=== PATIENT | female | born 1955 ===

== ENCOUNTER 2021-02-22 02:44 | Inpatient (IN) | payer BC ==
[~2021-02-22] VITALS: Ht 154.9 cm; Wt 84.0 kg
[2021-02-22] MEDS ORDERED: PLEASE ENTER ALLERGIES MC SCH (03:00)
[2021-02-22] MEDS ORDERED: PLEASE ENTER HEIGHT AND WEIGHT MC SCH (03:00)
[2021-02-22] MEDS ORDERED: ONDANSETRON 2MG/ML, 2ML IVPush PRN (03:30)
[2021-02-22] MEDS ORDERED: MELATONIN 5 MG TABLET PO PRN (03:30)
[2021-02-22] MEDS ORDERED: HEPARIN 5,000 UNITS/ML, 1ML IV PRN (03:30)
[2021-02-22] MEDS ORDERED: NITROGLYCERIN 0.4 MG BOTTLE (25 TABS) SL PRN (03:30)
[2021-02-22] MEDS ORDERED: morphine SULFATE 10 MG/ML, 1ML IVPush PRN (03:30)
[2021-02-22] MEDS ORDERED: NITROGLYCERIN 0.4 MG/SPRAY SL PRN (03:30)
[2021-02-22] MEDS ORDERED: HEPARIN 25,000 UNITS/250ML PMX 250 ML IV PRN (03:30)
[2021-02-22] MEDS ORDERED: HEPARIN 5,000 UNITS/ML, 1ML IV ONE (03:30)
[2021-02-22] MEDS ORDERED: POLYETHYLENE GLYCOL 17 GM PACKET PO PRN (03:30)
[2021-02-22 03:43] VITALS: BP 113/76
[2021-02-22 03:43] LABS: BASOPHILS % (AUTO) 0 % (0-1); EOSINOPHILS % (AUTO) 1 % (1-7); LYMPHOCYTES % (AUTO) 22 % (22-44); MEAN CORPUSCULAR HEMOGLOBIN 29.2 pg (27.0-34.8); MEAN CORPUSCULAR HGB CONC 33.4 g/dL (32.4-35.8); MEAN PLATELET VOLUME 8.5 fL (7.4-10.4); MONOCYTES % (AUTO) 8 % (2-9); NEUTROPHILS % (AUTO) 69 % (42-75); PLATELET COUNT 278 x10^3/uL (130-400); RED BLOOD COUNT 4.75 x10^6/uL (3.82-5.3); RED CELL DISTRIBUTION WIDTH 14.8 % (9.6-15.2)
[2021-02-22] MEDS ORDERED: LISI-167 PO (03:52)
[2021-02-22] MEDS ORDERED: ASPI81TA45 PO (03:55)
[2021-02-22 04:33] LABS: ANION GAP 4 mmol/L (5-15); CALCIUM 8.6 mg/dL (8.5-10.1); CHLORIDE 116 mmol/L (98-107)
[2021-02-22 04:38] LABS: CHOL/HDL RATIO 3.5; CHOLESTEROL, TOTAL 194 mg/dL (140-239); CREATININE 0.82 mg/dL (0.55-1.02); HDL CHOL % 29 % (28-40); HDL CHOLESTEROL (DIRECT) 56 mg/dL (40-60); LDL CHOLESTEROL,CALCULATED 113 mg/dL (54-169); TRIGLYCERIDES 125 mg/dL (50-200); VLDL CHOLESTEROL 25 mg/dL (0-25)
[2021-02-22 07:47] VITALS: BP 118/74
[2021-02-22] MEDS: ASPIRIN 81 MG TABLET CHEW PO SCH (09:04)
[2021-02-22] MEDS: CARVEDILOL 3.125 MG TABLET PO SCH ×2 (09:04→17:15)
[2021-02-22] MEDS: LISINOPRIL 10 MG TABLET PO SCH (09:04)
[2021-02-22] MEDS: SODIUM CHLORIDE 0.9% 1,000 ML IV SCH ×4 (10:00→19:38)
[2021-02-22] MEDS ORDERED: FENTANYL PF 100 MCG/2ML ONE (11:34)
[2021-02-22] MEDS ORDERED: MIDAZOLAM 1 MG/ML, 2ML ONE ×2 (11:34→12:22)
[2021-02-22] MEDS ORDERED: LIDOCAINE-MPF 1%, 5ML ONE (11:35)
[2021-02-22] MEDS ORDERED: HEPARIN 1,000 UNITS/ML, 10ML ONE (11:35)
[2021-02-22] MEDS ORDERED: VERAPAMIL 2.5 MG/ML, 2ML ONE (11:35)
[2021-02-22] MEDS ORDERED: BIVALIRUDIN 250 MG ONE (12:03)
[2021-02-22] MEDS ORDERED: TICAGRELOR 90 MG TABLET ONE (12:03)
[2021-02-22 14:30] VITALS: BP 118/73
[2021-02-22 20:38] VITALS: BP 162/99
[2021-02-22] MEDS: TICAGRELOR 90 MG TABLET PO SCH (20:46)
[2021-02-22] MEDS ORDERED: ATORVASTATIN 80 MG TABLET PO SCH (21:00)
[2021-02-23 01:01] VITALS: BP 137/91
[2021-02-23] MEDS: SODIUM CHLORIDE 0.9% 1,000 ML IV SCH ×3 (04:10→13:00)
[2021-02-23 05:13] LABS: BASOPHILS % (AUTO) 1 % (0-1); EOSINOPHILS % (AUTO) 4 % (1-7); LYMPHOCYTES % (AUTO) 25 % (22-44); MEAN CORPUSCULAR HEMOGLOBIN 29.8 pg (27.0-34.8); MEAN CORPUSCULAR HGB CONC 34.1 g/dL (32.4-35.8); MEAN PLATELET VOLUME 8.4 fL (7.4-10.4); MONOCYTES % (AUTO) 8 % (2-9); NEUTROPHILS % (AUTO) 62 % (42-75); PLATELET COUNT 233 x10^3/uL (130-400); RED BLOOD COUNT 4.25 x10^6/uL (3.82-5.3)
[2021-02-23 05:22] VITALS: BP 129/68
[2021-02-23 05:22] LABS: ANION GAP 4 mmol/L (5-15); CALCIUM 8.5 mg/dL (8.5-10.1); CHLORIDE 113 mmol/L (98-107); CREATININE 0.75 mg/dL (0.55-1.02)
[2021-02-23] MEDS: CARVEDILOL 3.125 MG TABLET PO SCH (05:25)
[2021-02-23] MEDS ORDERED: CARV3.1212 PO (06:08)
[2021-02-23] MEDS ORDERED: ATOR-2 PO (06:08)
[2021-02-23] MEDS ORDERED: TICA90TA PO ×2 (06:08)
[2021-02-23 07:48] VITALS: BP 127/68
[2021-02-23] MEDS: TICAGRELOR 90 MG TABLET PO SCH (09:00)
[2021-02-23] MEDS: ASPIRIN 81 MG TABLET CHEW PO SCH (09:35)
[2021-02-23] MEDS: LISINOPRIL 10 MG TABLET PO SCH (09:35)
[2021-02-23] MEDS ORDERED: CLOP75TA52 PO (12:54)
[2021-02-23 14:24] VITALS: BP 129/72
== END 2021-02-23 15:11 | disposition home or self-care (01) | DRG 247 ==
LOC: 5SO 02:44 → DCLOUNGE 02-23 14:52
PROVIDERS: ADMIT Internal Medicine; ATTEND Family Medicine
PROC: 027034Z Dilation of Coronary Artery, One Artery with Drug-eluting Intraluminal Device, Percutaneous Approach (ICD-10-PCS; principal; 2021-02-22)
PROC: B2111ZZ Fluoroscopy of Multiple Coronary Arteries using Low Osmolar Contrast (ICD-10-PCS; 2021-02-22)
PROC: 4A023N7 Measurement of Cardiac Sampling and Pressure, Left Heart, Percutaneous Approach (ICD-10-PCS; 2021-02-22)
PROC: B2151ZZ Fluoroscopy of Left Heart using Low Osmolar Contrast (ICD-10-PCS; 2021-02-22)
DX: I21.4 Non-ST elevation (NSTEMI) myocardial infarction (principal); E78.5 Hyperlipidemia, unspecified; I10 Essential (primary) hypertension; E66.9 Obesity, unspecified; R00.1 Bradycardia, unspecified; R55 Syncope and collapse; I25.10 Atherosclerotic heart disease of native coronary artery without angina pectoris; Z68.35 Body mass index [BMI] 35.0-35.9, adult; Z82.49 Family history of ischemic heart disease and other diseases of the circulatory system; Z87.891 Personal history of nicotine dependence; Z95.5 Presence of coronary angioplasty implant and graft
CPT/HCPCS: 36415; 80048; 80061; 83735; 84484; 85025; 85520; 93306; 93356; 93458; 99156; 99157; C1769; C1894; C9600; G0378; J0583; J1644; J2250; J3010; C1725; C1874; C1887; J7030; Q9967